=== PATIENT | male | born 1945 | race Caucasian/White ===

== ENCOUNTER 2018-01-06 10:59 | Inpatient (IN) | payer MEDICARE ==
[~2018-01-06] VITALS: Ht 167.6 cm; Wt 96.7 kg
[~2018-01-06 10:59] MED LIST: AMIO200T42 PO; ASPI-621 PO; DAPT500V3 IV; FURO-92 PO; HYDR-3307 PO; HYDR25TA6 PO; LOSA25TA5 PO; METO25TA35 PO; OMEG-160 PO; POTA20TA6 PO; SIMV20TA3 PO; VITA1CAP5 PO; WARF5TAB PO
[2018-01-06] MEDS ORDERED: FURO20TA3 PO (13:24)
[2018-01-06] MEDS ORDERED: HYDR12.58 PO (13:25)
[2018-01-06] MEDS ORDERED: POTA10TA11 PO (13:27)
[2018-01-06 13:30] VITALS: BP 113/70
[2018-01-06] MEDS ORDERED: ONDANSETRON 2MG/ML, 2ML IVPush PRN (14:00)
[2018-01-06] MEDS: HEPARIN 5,000 UNITS/ML, 1ML SQ SCH ×2 (14:12→21:41)
[2018-01-06] MEDS: SODIUM CHLORIDE 0.9% 1,000 ML IV SCH (14:24)
[2018-01-06 15:30] LABS: BASOPHILS # (AUTO) 0.08 x10^3/uL (0-0.1); BASOPHILS % (AUTO) 1 % (0-1); EOSINOPHILS # (AUTO) 0.31 x10^3/uL (0-0.4); EOSINOPHILS % (AUTO) 5 % (1-7); LYMPHOCYTES # (AUTO) 1.14 x10^3/uL (1-3.4); LYMPHOCYTES % (AUTO) 17 % (22-44); MD NO; MEAN CORPUSCULAR HEMOGLOBIN 28.2 pg (27.5-34.5); MEAN CORPUSCULAR HGB CONC 32.7 g/dL (33.2-36.2); MEAN CORPUSCULAR VOLUME 86.3 fL (81-97); MEAN PLATELET VOLUME 8.8 fL (7.4-10.4); MONOCYTES # (AUTO) 0.77 x10^3/uL (0.2-0.8); MONOCYTES % (AUTO) 11 % (2-9); NEUTROPHILS # (AUTO) 4.63 x10^3/uL (1.8-6.8); NEUTROPHILS % (AUTO) 67 % (42-75); PLATELET COUNT 236 x10^3/uL (130-400); RED BLOOD COUNT 5.16 x10^6/uL (4.38-5.82); RED CELL DISTRIBUTION WIDTH 17.1 % (9.4-14.8)
[2018-01-06 15:33] LABS: INTERNATIONAL NORMALIZED RATIO 1.19 (0.93-1.1); PROTHROMBIN TIME 12.2 Seconds (9.6-11.5)
[2018-01-06 15:36] LABS: ALBUMIN 2.2 g/dL (3.4-5.0); ANION GAP 7 mmol/L (5-15); CALCIUM 8.6 mg/dL (8.5-10.1); CHLORIDE 99 mmol/L (98-107)
[2018-01-06 15:52] LABS: ALANINE AMINOTRANSFERASE 181 U/L (12-78); ALKALINE PHOSPHATASE 1306 U/L (45-117); BILIRUBIN,TOTAL 7.8 mg/dL (0.2-1.0); CREATININE 0.78 mg/dL (0.7-1.3); TOTAL PROTEIN 6.8 g/dL (6.4-8.2)
[2018-01-06 19:58] VITALS: BP 111/64
[2018-01-06] MEDS: METOPROLOL TARTRATE 25 MG TABLET PO SCH (21:35)
[2018-01-06] MEDS ORDERED: IBUPROFEN 200 MG TABLET PO PRN (23:00)
[2018-01-07 01:48] VITALS: BP 111/69
[2018-01-07 04:51] LABS: BASOPHILS # (AUTO) 0.08 x10^3/uL (0-0.1); BASOPHILS % (AUTO) 1 % (0-1); EOSINOPHILS # (AUTO) 0.44 x10^3/uL (0-0.4); EOSINOPHILS % (AUTO) 6 % (1-7); LYMPHOCYTES # (AUTO) 1.68 x10^3/uL (1-3.4); LYMPHOCYTES % (AUTO) 23 % (22-44); MD NO; MEAN CORPUSCULAR HEMOGLOBIN 28.6 pg (27.5-34.5); MEAN CORPUSCULAR HGB CONC 33.2 g/dL (33.2-36.2); MEAN CORPUSCULAR VOLUME 86.1 fL (81-97); MEAN PLATELET VOLUME 8.3 fL (7.4-10.4); MONOCYTES # (AUTO) 0.75 x10^3/uL (0.2-0.8); MONOCYTES % (AUTO) 10 % (2-9); NEUTROPHILS # (AUTO) 4.36 x10^3/uL (1.8-6.8); NEUTROPHILS % (AUTO) 60 % (42-75); PLATELET COUNT 257 x10^3/uL (130-400); RED BLOOD COUNT 4.91 x10^6/uL (4.38-5.82); RED CELL DISTRIBUTION WIDTH 16.8 % (9.4-14.8)
[2018-01-07 05:01] LABS: ALANINE AMINOTRANSFERASE 167 U/L (12-78); ALBUMIN 2.1 g/dL (3.4-5.0); ANION GAP 4 mmol/L (5-15); CALCIUM 8.3 mg/dL (8.5-10.1); CHLORIDE 101 mmol/L (98-107); CREATININE 0.72 mg/dL (0.7-1.3)
[2018-01-07 05:15] LABS: ALKALINE PHOSPHATASE 1235 U/L (45-117); BILIRUBIN,TOTAL 8.1 mg/dL (0.2-1.0); TOTAL PROTEIN 6.4 g/dL (6.4-8.2)
[2018-01-07] MEDS: SODIUM CHLORIDE 0.9% 1,000 ML IV SCH ×2 (05:30→23:50)
[2018-01-07 08:03] VITALS: BP 112/69
[2018-01-07] MEDS: LOSARTAN 25MG TABLET PO SCH (08:26)
[2018-01-07] MEDS: METOPROLOL TARTRATE 25 MG TABLET PO SCH ×2 (08:26→20:49)
[2018-01-07] MEDS: ASPIRIN 81 MG TABLET EC PO SCH (08:26)
[2018-01-07 12:35] VITALS: BP 96/70
[2018-01-07] MEDS ORDERED: ROCURONIUM 10MG/ML,5ML ONE (14:13)
[2018-01-07] MEDS ORDERED: SUCCINYLCHOLINE 20 MG/ML, 10ML ONE (14:13)
[2018-01-07] MEDS ORDERED: PROPOFOL 10 MG/ML, 20ML ONE (14:13)
[2018-01-07] MEDS ORDERED: FENTANYL PF 100 MCG/2ML ONE (14:14)
[2018-01-07] MEDS ORDERED: PROMETHAZINE 12.5 MG SUPP PR PRN (14:30)
[2018-01-07] MEDS ORDERED: PROMETHAZINE 25 MG SUPP PR PRN (14:30)
[2018-01-07] MEDS ORDERED: PROMETHAZINE 25 MG/ML, 1ML IV PRN (14:30)
[2018-01-07] MEDS ORDERED: HYDROmorphone 1 MG/ML, 1ML IV PRN (14:30)
[2018-01-07] MEDS ORDERED: FENTANYL PF 100 MCG/2ML IV PRN (14:30)
[2018-01-07] MEDS ORDERED: hydrALAzine 20 MG/ML, 1ML IV PRN (14:30)
[2018-01-07] MEDS ORDERED: LABETALOL 5MG/ML, 20ML IV PRN (14:30)
[2018-01-07] MEDS ORDERED: ONDANSETRON ODT 8 MG PO PRN (14:30)
[2018-01-07] MEDS: HEPARIN 5,000 UNITS/ML, 1ML SQ SCH ×2 (15:00→20:49)
[2018-01-07] MEDS ORDERED: PHENYLEPHRINE 10 MG/ML ONE (15:43)
[2018-01-07] MEDS ORDERED: OMNIPAQUE 350 MG/ML, 50 ML BOTTLE IV ONE (16:00)
[2018-01-07] MEDS ORDERED: METOPROLOL 1 MG/ML, 5ML ONE (16:01)
[2018-01-07] MEDS: ACETAMINOPHEN 325 MG TABLET PO PRN ×2 (18:18→23:50)
[2018-01-07 19:12] VITALS: BP 136/79
[2018-01-08 03:44] VITALS: BP 126/74
[2018-01-08] MEDS: HEPARIN 5,000 UNITS/ML, 1ML SQ SCH ×3 (05:59→21:25)
[2018-01-08] MEDS: SENNA/DOCUSATE TABLET PO PRN (06:13)
[2018-01-08] MEDS: ACETAMINOPHEN 325 MG TABLET PO PRN (06:13)
[2018-01-08 07:49] LABS: ALANINE AMINOTRANSFERASE 174 U/L (12-78); ALBUMIN 2.1 g/dL (3.4-5.0); ANION GAP 9 mmol/L (5-15); CALCIUM 8.8 mg/dL (8.5-10.1); CHLORIDE 101 mmol/L (98-107); CREATININE 0.88 mg/dL (0.7-1.3)
[2018-01-08 07:52] VITALS: BP 105/69
[2018-01-08 07:52] LABS: TOTAL PROTEIN 6.6 g/dL (6.4-8.2)
[2018-01-08] MEDS: METOPROLOL TARTRATE 25 MG TABLET PO SCH ×2 (07:54→21:24)
[2018-01-08] MEDS: ASPIRIN 81 MG TABLET EC PO SCH (07:54)
[2018-01-08] MEDS: LOSARTAN 25MG TABLET PO SCH (07:54)
[2018-01-08 08:15] LABS: ALKALINE PHOSPHATASE 1366 U/L (45-117)
[2018-01-08] MEDS ORDERED: HYDROcodone/APAP 5/325 TABLET PO ONE (09:30)
[2018-01-08 15:32] VITALS: BP 124/70
[2018-01-08] MEDS: OXYcodone IR 5MG TABLET PO PRN (16:41)
[2018-01-08 20:10] VITALS: BP 130/77
[2018-01-08] MEDS: SODIUM CHLORIDE 0.9% 1,000 ML IV SCH (21:00)
[2018-01-08] MEDS: ACETAMINOPHEN 325 MG TABLET PO SCH (21:24)
[2018-01-08] MEDS ORDERED: ONDANSETRON ODT 4 MG PO PRN (21:30)
[2018-01-09 00:46] VITALS: BP 115/66
[2018-01-09] MEDS: ACETAMINOPHEN 325 MG TABLET PO SCH ×5 (03:00→20:59)
[2018-01-09] MEDS: OXYcodone IR 5MG TABLET PO PRN ×3 (04:53→20:59)
[2018-01-09] MEDS: HEPARIN 5,000 UNITS/ML, 1ML SQ SCH ×3 (04:55→21:00)
[2018-01-09 07:35] VITALS: BP 105/65
[2018-01-09] MEDS ORDERED: FENTANYL PF 100 MCG/2ML ONE (08:04)
[2018-01-09] MEDS ORDERED: LIDOCAINE 2% 100MG/5ML SYRINGE ONE (08:26)
[2018-01-09] MEDS ORDERED: ROCURONIUM 10MG/ML,5ML ONE (08:26)
[2018-01-09] MEDS ORDERED: PHENYLEPHRINE 10 MG/ML ONE (08:26)
[2018-01-09] MEDS ORDERED: PROPOFOL 10 MG/ML, 20ML ONE (08:26)
[2018-01-09] MEDS ORDERED: SUCCINYLCHOLINE 20 MG/ML, 10ML ONE (08:26)
[2018-01-09] MEDS: LOSARTAN 25MG TABLET PO SCH (09:00)
[2018-01-09] MEDS: METOPROLOL TARTRATE 25 MG TABLET PO SCH ×2 (09:00→20:59)
[2018-01-09] MEDS ORDERED: GLUCAGON 1 MG ONE (09:23)
[2018-01-09] MEDS ORDERED: OMNIPAQUE 350 MG/ML, 50 ML BOTTLE ONE (10:06)
[2018-01-09 14:00] VITALS: BP 120/74
[2018-01-09] MEDS: SODIUM CHLORIDE 0.9% 1,000 ML IV SCH (15:05)
[2018-01-09 19:41] VITALS: BP 117/67
[2018-01-10] MEDS ORDERED: DIPHENHYDRAMINE 25 MG CAPSULE PO PRN
[2018-01-10 01:38] VITALS: BP 104/66
[2018-01-10] MEDS: ACETAMINOPHEN 325 MG TABLET PO SCH ×4 (03:00→21:24)
[2018-01-10] MEDS: HEPARIN 5,000 UNITS/ML, 1ML SQ SCH ×3 (05:00→21:24)
[2018-01-10] MEDS: OXYcodone IR 5MG TABLET PO PRN ×3 (06:27→21:24)
[2018-01-10 08:18] VITALS: BP 107/67
[2018-01-10] MEDS: LOSARTAN 25MG TABLET PO SCH (09:29)
[2018-01-10] MEDS: METOPROLOL TARTRATE 25 MG TABLET PO SCH ×2 (09:29→21:24)
[2018-01-10] MEDS: SODIUM CHLORIDE 0.9% 1,000 ML IV SCH (09:30)
[2018-01-10 13:17] VITALS: BP 102/64
[2018-01-10 19:33] VITALS: BP 102/62
[2018-01-11] MEDS: SODIUM CHLORIDE 0.9% 1,000 ML IV SCH (02:07)
[2018-01-11] MEDS: ACETAMINOPHEN 325 MG TABLET PO SCH ×4 (03:00→21:00)
[2018-01-11 03:15] VITALS: BP 119/73
[2018-01-11] MEDS: HEPARIN 5,000 UNITS/ML, 1ML SQ SCH ×4 (05:05→20:40)
[2018-01-11 07:01] VITALS: BP 114/65
[2018-01-11] MEDS: LOSARTAN 25MG TABLET PO SCH (08:28)
[2018-01-11] MEDS: METOPROLOL TARTRATE 25 MG TABLET PO SCH ×2 (08:28→20:40)
[2018-01-11] MEDS: OXYcodone IR 5MG TABLET PO PRN ×2 (08:32→22:30)
[2018-01-11 12:21] VITALS: BP 108/62
[2018-01-11] MEDS: SENNA/DOCUSATE TABLET PO PRN (14:03)
[2018-01-11] MEDS ORDERED: BISACODYL 10 MG SUPP PR PRN (14:30)
[2018-01-11 19:12] VITALS: BP 113/65
[2018-01-12 01:14] VITALS: BP 109/62
[2018-01-12] MEDS: ACETAMINOPHEN 325 MG TABLET PO SCH ×4 (03:00→20:35)
[2018-01-12] MEDS: MORPHINE SULFATE 4 MG/ML, 1ML IVPush PRN ×2 (05:19→17:35)
[2018-01-12 06:36] LABS: ALANINE AMINOTRANSFERASE 180 U/L (12-78); ALBUMIN 1.8 g/dL (3.4-5.0); ANION GAP 5 mmol/L (5-15); CALCIUM 8.2 mg/dL (8.5-10.1); CHLORIDE 98 mmol/L (98-107); CREATININE 0.61 mg/dL (0.7-1.3)
[2018-01-12 06:51] LABS: ALKALINE PHOSPHATASE 1049 U/L (45-117); BILIRUBIN,TOTAL 10.9 mg/dL (0.2-1.0); TOTAL PROTEIN 5.6 g/dL (6.4-8.2)
[2018-01-12 08:00] VITALS: BP 109/59
[2018-01-12] MEDS: LOSARTAN 25MG TABLET PO SCH (08:21)
[2018-01-12] MEDS: METOPROLOL TARTRATE 25 MG TABLET PO SCH ×2 (08:21→20:35)
[2018-01-12] MEDS: SODIUM CHLORIDE 0.9% 1,000 ML IV SCH (08:21)
[2018-01-12] MEDS: HEPARIN 5,000 UNITS/ML, 1ML SQ SCH ×2 (11:11→20:35)
[2018-01-12 13:18] VITALS: BP 96/48
[2018-01-12] MEDS ORDERED: MIDAZOLAM 1 MG/ML, 2ML ONE (14:34)
[2018-01-12] MEDS ORDERED: CEFAZOLIN 1,000 MG ONE (14:34)
[2018-01-12] MEDS ORDERED: DEXAMETHASONE 4 MG/ML, 1ML ONE (14:34)
[2018-01-12] MEDS ORDERED: FENTANYL PF 100 MCG/2ML ONE (14:35)
[2018-01-12] MEDS ORDERED: OMNIPAQUE 350 MG/ML, 50 ML BOTTLE IV ONE (15:00)
[2018-01-12] MEDS ORDERED: ONDANSETRON ODT 8 MG PO PRN (15:30)
[2018-01-12] MEDS ORDERED: EPHEDRINE 50 MG/ML, 1ML IVPush PRN (15:30)
[2018-01-12] MEDS ORDERED: hydrALAzine 20 MG/ML, 1ML IV PRN (15:30)
[2018-01-12] MEDS ORDERED: HYDROcodone/APAP 7.5-325MG/15ML UDC PO PRN (15:30)
[2018-01-12] MEDS ORDERED: MEPERIDINE/PF 25MG/0.5ML IVPush PRN (15:30)
[2018-01-12] MEDS ORDERED: OXYcodone 5 MG/5 ML ORAL.SOL UDC PO PRN (15:30)
[2018-01-12] MEDS ORDERED: PROMETHAZINE 25 MG/ML, 1ML IV PRN (15:30)
[2018-01-12] MEDS ORDERED: HYDROmorphone 1 MG/ML, 1ML IV PRN (15:30)
[2018-01-12] MEDS ORDERED: MIDAZOLAM 1 MG/ML, 2ML IV PRN (15:30)
[2018-01-12] MEDS ORDERED: ACETAMINOPHEN 325 MG TABLET PO PRN (15:30)
[2018-01-12] MEDS ORDERED: FENTANYL PF 100 MCG/2ML IV PRN (15:30)
[2018-01-12] MEDS ORDERED: ALBUTEROL SULFATE 2.5 MG/3 ML NPPB PRN (15:30)
[2018-01-12] MEDS ORDERED: LABETALOL 5MG/ML, 20ML IV PRN (15:30)
[2018-01-12 19:57] VITALS: BP 102/54
[2018-01-13] MEDS: OXYcodone IR 5MG TABLET PO PRN (00:37)
[2018-01-13] MEDS: SODIUM CHLORIDE 0.9% 1,000 ML IV SCH ×2 (00:40→04:10)
[2018-01-13 01:10] VITALS: BP 100/56
[2018-01-13] MEDS: ACETAMINOPHEN 325 MG TABLET PO SCH ×3 (02:48→13:38)
[2018-01-13] MEDS: HEPARIN 5,000 UNITS/ML, 1ML SQ SCH ×2 (04:53→13:33)
[2018-01-13 07:21] VITALS: BP 117/71
[2018-01-13] MEDS: LOSARTAN 25MG TABLET PO SCH (08:59)
[2018-01-13] MEDS: METOPROLOL TARTRATE 25 MG TABLET PO SCH (09:00)
[2018-01-13] MEDS: SENNA/DOCUSATE TABLET PO PRN (09:12)
[2018-01-13 14:42] VITALS: BP 123/67
[2018-01-13 17:28] LABS: ALBUMIN 1.8 g/dL (3.4-5.0); ANION GAP 5 mmol/L (5-15); CALCIUM 8.6 mg/dL (8.5-10.1); CHLORIDE 99 mmol/L (98-107)
[2018-01-13 17:43] LABS: ALANINE AMINOTRANSFERASE 171 U/L (12-78); ALKALINE PHOSPHATASE 1048 U/L (45-117); BILIRUBIN,TOTAL 5.8 mg/dL (0.2-1.0); TOTAL PROTEIN 6.1 g/dL (6.4-8.2)
== END 2018-01-13 19:00 | disposition home or self-care (01) | DRG 435 ==
LOC: 3NW 13:13
PROVIDERS: ADMIT Internal Medicine; ATTEND Internal Medicine
PROC: 0F798DZ Dilation of Common Bile Duct with Intraluminal Device, Via Natural or Artificial Opening Endoscopic (ICD-10-PCS; principal; 2018-01-07 13:00)
PROC: BF4CZZZ Ultrasonography of Hepatobiliary System, All (ICD-10-PCS; 2018-01-09)
PROC: 0FPB8DZ Removal of Intraluminal Device from Hepatobiliary Duct, Via Natural or Artificial Opening Endoscopic (ICD-10-PCS; 2018-01-09)
PROC: 0F9G8ZZ Drainage of Pancreas, Via Natural or Artificial Opening Endoscopic (ICD-10-PCS; 2018-01-09)
PROC: 0F798DZ Dilation of Common Bile Duct with Intraluminal Device, Via Natural or Artificial Opening Endoscopic (ICD-10-PCS; 2018-01-12)
PROC: BF101ZZ Fluoroscopy of Bile Ducts using Low Osmolar Contrast (ICD-10-PCS; 2018-01-12)
DX: C25.9 Malignant neoplasm of pancreas, unspecified (principal); K83.1 Obstruction of bile duct; J90 Pleural effusion, not elsewhere classified; E87.1 Hypo-osmolality and hyponatremia; K86.9 Disease of pancreas, unspecified; E11.9 Type 2 diabetes mellitus without complications; M54.9 Dorsalgia, unspecified; E78.5 Hyperlipidemia, unspecified; I10 Essential (primary) hypertension; I25.10 Atherosclerotic heart disease of native coronary artery without angina pectoris; I35.0 Nonrheumatic aortic (valve) stenosis; Z79.82 Long term (current) use of aspirin; Z95.1 Presence of aortocoronary bypass graft; Z95.3 Presence of xenogenic heart valve; Z95.5 Presence of coronary angioplasty implant and graft; Z90.49 Acquired absence of other specified parts of digestive tract; Z79.899 Other long term (current) drug therapy
CPT/HCPCS: 36415; 74181; 74328; 80053; 82962; 83690; 85025; 85610; 88104; 88173; 88307; 93005; J0690; J1100; J1644; J2250; J2405; J2704; J3010; Q0162; Q9967; C1769; C1874; C1894; C2625; J0330; J1610; J2370; J7030; Q0163

== ENCOUNTER 2018-01-18 20:30 | Inpatient (IN) | payer MEDICARE ==
[~2018-01-18] VITALS: Ht 167.6 cm; Wt 100.2 kg
[~2018-01-18 20:30] MED LIST changes: +FURO20TA3 PO; +HYDR12.58 PO; +POTA10TA11 PO
[2018-01-18 21:12] LABS: BASOPHILS # (AUTO) 0.03 x10^3/uL (0-0.1); BASOPHILS % (AUTO) 0 % (0-1); EOSINOPHILS % (AUTO) 1 % (1-7); LYMPHOCYTES # (AUTO) 1.11 x10^3/uL (1-3.4); LYMPHOCYTES % (AUTO) 13 % (22-44); MD NO; MEAN CORPUSCULAR HEMOGLOBIN 28.8 pg (27.5-34.5); MEAN CORPUSCULAR HGB CONC 33.2 g/dL (33.2-36.2); MEAN CORPUSCULAR VOLUME 86.9 fL (81-97); MEAN PLATELET VOLUME 7.8 fL (7.4-10.4); MONOCYTES # (AUTO) 0.93 x10^3/uL (0.2-0.8); MONOCYTES % (AUTO) 11 % (2-9); NEUTROPHILS # (AUTO) 6.44 x10^3/uL (1.8-6.8); NEUTROPHILS % (AUTO) 75 % (42-75); PLATELET COUNT 324 x10^3/uL (130-400); RED BLOOD COUNT 4.93 x10^6/uL (4.38-5.82); RED CELL DISTRIBUTION WIDTH 18.1 % (9.4-14.8)
[2018-01-18] MEDS ORDERED: SODIUM CHLORIDE 0.9% 1,000 ML IV ONE (21:12)
[2018-01-18 21:22] LABS: ALANINE AMINOTRANSFERASE 133 U/L (12-78); ALBUMIN 2.2 g/dL (3.4-5.0); ANION GAP 8 mmol/L (5-15); CALCIUM 8.7 mg/dL (8.5-10.1); CHLORIDE 97 mmol/L (98-107); CREATININE 0.81 mg/dL (0.7-1.3)
[2018-01-18 21:26] LABS: ALKALINE PHOSPHATASE 958 U/L (45-117); BILIRUBIN,TOTAL 4.3 mg/dL (0.2-1.0); TOTAL PROTEIN 6.9 g/dL (6.4-8.2); TROPONIN I < 0.015 ng/mL (0.000-0.045)
[2018-01-18] MEDS ORDERED: AZITHROMYCIN 500 MG in SODIUM CHLORIDE 0.9% 250 ML IV ONE (21:30)
[2018-01-18] MEDS ORDERED: ONDANSETRON 2MG/ML, 2ML IVPush ONE (21:30)
[2018-01-18] MEDS ORDERED: CEFTRIAXONE PMX 1GM/50ML 50 ML IV ONE (21:30)
[2018-01-18] MEDS ORDERED: SODIUM CHLORIDE FLUSH 10ML SYR IVF ONE (21:30)
[2018-01-18] MEDS ORDERED: FUROSEMIDE 40 MG/4 ML IV ONE (21:30)
[2018-01-18 21:33] LABS: INTERNATIONAL NORMALIZED RATIO 1.13 (0.93-1.1); PROTHROMBIN TIME 11.6 Seconds (9.6-11.5)
[2018-01-18] MEDS ORDERED: CEFTRIAXONE PMX 1GM/50ML 50 ML ONE (21:37)
[2018-01-18] MEDS ORDERED: ONDANSETRON 2MG/ML, 2ML ONE (21:37)
[2018-01-18] MEDS ORDERED: FUROSEMIDE 20 MG/2 ML ONE (21:38)
[2018-01-18] MEDS ORDERED: MORPHINE SULFATE 4 MG/ML, 1ML ONE ×2 (21:38→22:51)
[2018-01-18] MEDS: MORPHINE SULFATE 4 MG/ML, 1ML IVPush PRN ×2 (21:41→22:57)
[2018-01-18] MEDS ORDERED: POT25TAB PO (23:22)
[2018-01-18] MEDS ORDERED: DOCU100C33 PO (23:22)
[2018-01-18] MEDS ORDERED: OMEG1CAP23 PO (23:22)
[2018-01-18] MEDS ORDERED: FURO20TA3 PO (23:22)
[2018-01-18] MEDS ORDERED: POLYETHYLENE GLYCOL 17 GM PACKET PO PRN (23:30)
[2018-01-18] MEDS ORDERED: hydrALAzine 20 MG/ML, 1ML IVPush PRN (23:30)
[2018-01-18] MEDS ORDERED: DOCUSATE 100 MG CAPSULE PO PRN ×2 (23:30)
[2018-01-19] VITALS (7 sets, daily range): BP systolic 90–157; BP diastolic 56–93
[2018-01-19] MEDS ORDERED: OMNIPAQUE 350 MG/ML, 100ML BOTTLE ONE (00:03)
[2018-01-19] MEDS: ENOXAPARIN 40 MG/0.4 ML SQ SCH (01:30)
[2018-01-19] MEDS: morphine SULFATE 10 MG/ML, 1ML IVPush PRN ×4 (01:30→16:50)
[2018-01-19] MEDS: ACETAMINOPHEN 325 MG TABLET PO PRN (02:34)
[2018-01-19] MEDS: ONDANSETRON 2MG/ML, 2ML IVPush PRN ×2 (02:34→19:15)
[2018-01-19 04:12] LABS: ALANINE AMINOTRANSFERASE 128 U/L (12-78); ALBUMIN 2.1 g/dL (3.4-5.0); ANION GAP 10 mmol/L (5-15); CALCIUM 8.5 mg/dL (8.5-10.1); CHLORIDE 95 mmol/L (98-107)
[2018-01-19 04:16] LABS: ALKALINE PHOSPHATASE 905 U/L (45-117); BILIRUBIN,TOTAL 4.5 mg/dL (0.2-1.0); TOTAL PROTEIN 6.7 g/dL (6.4-8.2); TROPONIN I < 0.015 ng/mL (0.000-0.045)
[2018-01-19 06:09] LABS: BASOPHILS % (AUTO) 0 % (0-1); EOSINOPHILS # (AUTO) 0.01 x10^3/uL (0-0.4); EOSINOPHILS % (AUTO) 0 % (1-7); LYMPHOCYTES # (AUTO) 0.72 x10^3/uL (1-3.4); LYMPHOCYTES % (AUTO) 5 % (22-44); MD NO; MEAN CORPUSCULAR HGB CONC 33.6 g/dL (33.2-36.2); MEAN CORPUSCULAR VOLUME 86.4 fL (81-97); MEAN PLATELET VOLUME 8.4 fL (7.4-10.4); MONOCYTES # (AUTO) 0.83 x10^3/uL (0.2-0.8); MONOCYTES % (AUTO) 6 % (2-9); NEUTROPHILS # (AUTO) 12.75 x10^3/uL (1.8-6.8); NEUTROPHILS % (AUTO) 89 % (42-75); PLATELET COUNT 332 x10^3/uL (130-400); RED BLOOD COUNT 4.76 x10^6/uL (4.38-5.82); RED CELL DISTRIBUTION WIDTH 18.3 % (9.4-14.8)
[2018-01-19] MEDS ORDERED: CEFTRIAXONE 1,000 MG in SODIUM CHLORIDE 0.9% 50 ML IV SCH (08:00)
[2018-01-19] MEDS ORDERED: CEFTRIAXONE PMX 1GM/50ML 50 ML IV SCH (08:00)
[2018-01-19] MEDS: POTASSIUM CHLORIDE 20 MEQ TAB.ER.PRT PO SCH ×2 (08:37→16:50)
[2018-01-19] MEDS: ASPIRIN 81 MG TABLET EC PO SCH (08:39)
[2018-01-19] MEDS: FUROSEMIDE 40 MG/4 ML IV SCH ×2 (08:48→16:50)
[2018-01-19] MEDS: METOPROLOL TARTRATE 25 MG TABLET PO SCH ×2 (08:48→23:01)
[2018-01-19] MEDS: SODIUM CHLORIDE FLUSH 10ML SYR IVF SCH ×2 (08:49→20:49)
[2018-01-19] MEDS: OMEGA-3/FISH OIL CAPSULE PO SCH (08:49)
[2018-01-19] MEDS: DOXYCYCLINE 100 MG in DEXTROSE 5% 250 ML IV SCH ×2 (08:49→20:49)
[2018-01-19] MEDS ORDERED: LOSARTAN 25MG TABLET PO SCH (09:00)
[2018-01-19 09:42] LABS: TROPONIN I < 0.015 ng/mL (0.000-0.045)
[2018-01-19] MEDS ORDERED: LIDOCAINE-MPF 2% ,5ML ONE (11:19)
[2018-01-19] MEDS: SODIUM CHLORIDE 0.9% 1,000 ML IV SCH (21:07)
[2018-01-20] VITALS (7 sets, daily range): BP systolic 82–96; BP diastolic 50–58
[2018-01-20] MEDS ORDERED: ALUMINUM/MAG/SIMETHICONE 30 ML UDC PO ONE (04:40)
[2018-01-20 06:05] LABS: MEAN CORPUSCULAR HEMOGLOBIN 28.5 pg (27.5-34.5); MEAN CORPUSCULAR HGB CONC 32.9 g/dL (33.2-36.2); MEAN CORPUSCULAR VOLUME 86.8 fL (81-97); MEAN PLATELET VOLUME 7.6 fL (7.4-10.4); PLATELET COUNT 222 x10^3/uL (130-400); RED CELL DISTRIBUTION WIDTH 17.9 % (9.4-14.8)
[2018-01-20 06:22] LABS: ALANINE AMINOTRANSFERASE 146 U/L (12-78); ALBUMIN 1.7 g/dL (3.4-5.0); ANION GAP 7 mmol/L (5-15); CALCIUM 8.4 mg/dL (8.5-10.1); CHLORIDE 93 mmol/L (98-107)
[2018-01-20 06:25] LABS: ALKALINE PHOSPHATASE 680 U/L (45-117); BILIRUBIN,TOTAL 3.5 mg/dL (0.2-1.0); CREATININE 1.97 mg/dL (0.7-1.3); TOTAL PROTEIN 5.4 g/dL (6.4-8.2)
[2018-01-20] MEDS: SODIUM CHLORIDE 0.9% 1,000 ML IV SCH ×3 (06:30→12:13)
[2018-01-20 06:43] LABS: MD YES
[2018-01-20 06:45] LABS: BAND#(MANUAL) 3.15 x10^3/uL; BANDS%(MANUAL) 19 % (0-7); LYMPH#(MANUAL) 1.83 x10^3/uL (1-3.4); LYMPHS% (MANUAL) 11 % (22-44); MONOS#(MANUAL) 0.33 x10^3/uL (0.3-2.7); MONOS% (MANUAL) 2 % (2-9); SEG#(MANUAL) 11.29 x10^3/uL (1.8-6.8); SEGS% (MANUAL) 68 % (42-75)
[2018-01-20 06:46] LABS: <PLATELET ESTIMATE> ADEQUATE; <PLT MORPHOLOGY> NORMAL PLT MORPH; ANISOCYTOSIS 1+; TOXIC GRAN 1+
[2018-01-20] MEDS ORDERED: MAALOX/HYOSCYAMINE/LIDOCAINE 45 ML BTL PO PRN (07:00)
[2018-01-20] MEDS ORDERED: ROCEPHIN MC SCH (07:00)
[2018-01-20] MEDS ORDERED: ALBUMIN HUMAN 25% 100 ML IV ONE ×2 (07:00→11:30)
[2018-01-20] MEDS ORDERED: CEFTRIAXONE PMX 1GM/50ML 50 ML IV SCH (08:00)
[2018-01-20] MEDS: CEFTRIAXONE 2 GM in SODIUM CHLORIDE 0.9% 50 ML IV SCH (08:09)
[2018-01-20] MEDS: SODIUM CHLORIDE 0.9% 500 ML IV SCH ×3 (08:09→10:44)
[2018-01-20] MEDS ORDERED: METOPROLOL TARTRATE 25 MG TABLET PO SCH (09:00)
[2018-01-20] MEDS: DOXYCYCLINE 100 MG in DEXTROSE 5% 250 ML IV SCH ×2 (09:39→21:23)
[2018-01-20] MEDS: POTASSIUM CHLORIDE 20 MEQ TAB.ER.PRT PO SCH (09:40)
[2018-01-20] MEDS: ASPIRIN 81 MG TABLET EC PO SCH (09:40)
[2018-01-20] MEDS: SODIUM CHLORIDE FLUSH 10ML SYR IVF SCH ×2 (09:40→20:19)
[2018-01-20] MEDS: ENOXAPARIN 40 MG/0.4 ML SQ SCH (09:40)
[2018-01-20] MEDS: OMEGA-3/FISH OIL CAPSULE PO SCH (09:41)
[2018-01-20] MEDS ORDERED: ALBUMIN HUMAN 5% 250 ML IV ONE (11:30)
[2018-01-20] MEDS: ACETAMINOPHEN 325 MG TABLET PO PRN (14:50)
[2018-01-20] MEDS: BISACODYL 10 MG SUPP PR PRN (14:53)
[2018-01-20] MEDS ORDERED: SODIUM CHLORIDE 0.9% 500 ML IV SCH (15:00)
[2018-01-20] MEDS ORDERED: MORPHINE SULFATE 4 MG/ML, 1ML IVPush PRN (17:00)
[2018-01-20] MEDS ORDERED: LACTULOSE 10 GM/15 ML UDC PO PRN (17:00)
[2018-01-20 17:19] LABS: ANION GAP 11 mmol/L (5-15); CALCIUM 8.2 mg/dL (8.5-10.1); CHLORIDE 95 mmol/L (98-107); CREATININE 1.85 mg/dL (0.7-1.3)
[2018-01-20] MEDS: HEPARIN 5,000 UNITS/ML, 1ML SQ SCH (17:34)
[2018-01-20] MEDS ORDERED: SODIUM CHLORIDE 0.9% 1,000 ML IV SCH (19:00)
[2018-01-20] MEDS ORDERED: ALBUTEROL/IPRATROPIUM 2.5MG/0.5MG, 3 ML ONE (19:33)
[2018-01-20] MEDS: ALBUMIN HUMAN 25% 100 ML IV SCH (20:17)
[2018-01-20] MEDS: DOCUSATE 100 MG CAPSULE PO SCH (20:18)
[2018-01-20] MEDS: LACTULOSE 10 GM/15 ML UDC PO SCH (20:19)
[2018-01-20 22:53] LABS: POTASSIUM,URINE RANDOM 63 mmol/L
[2018-01-20 22:56] LABS: CHLORIDE,URINE RANDOM < 10 mmol/L; SODIUM,URINE RANDOM < 5 mmol/L
[2018-01-21] MEDS: ACETAMINOPHEN 325 MG TABLET PO PRN (01:02)
[2018-01-21 01:06] VITALS: BP 103/65
[2018-01-21] MEDS ORDERED: SODIUM CHLORIDE 0.9% 1,000 ML IV SCH ×2 (01:30→21:00)
[2018-01-21] MEDS: HEPARIN 5,000 UNITS/ML, 1ML SQ SCH ×3 (04:18→20:25)
[2018-01-21] MEDS: ALBUMIN HUMAN 25% 100 ML IV SCH ×3 (04:18→20:26)
[2018-01-21 05:24] LABS: ALBUMIN 2.5 g/dL (3.4-5.0); ANION GAP 9 mmol/L (5-15); CALCIUM 8.1 mg/dL (8.5-10.1); CHLORIDE 96 mmol/L (98-107)
[2018-01-21 05:27] LABS: ALANINE AMINOTRANSFERASE 212 U/L (12-78); ALKALINE PHOSPHATASE 765 U/L (45-117); BILIRUBIN,TOTAL 4.9 mg/dL (0.2-1.0); TOTAL PROTEIN 5.6 g/dL (6.4-8.2)
[2018-01-21 05:28] LABS: MEAN CORPUSCULAR HGB CONC 33.2 g/dL (33.2-36.2); MEAN CORPUSCULAR VOLUME 87.4 fL (81-97); MEAN PLATELET VOLUME 8.7 fL (7.4-10.4); PLATELET COUNT 160 x10^3/uL (130-400); RED BLOOD COUNT 3.82 x10^6/uL (4.38-5.82); RED CELL DISTRIBUTION WIDTH 18.6 % (9.4-14.8)
[2018-01-21 05:51] LABS: MD YES
[2018-01-21 05:53] LABS: BAND#(MANUAL) 1.63 x10^3/uL; BANDS%(MANUAL) 11 % (0-7); LYMPH#(MANUAL) 1.33 x10^3/uL (1-3.4); LYMPHS% (MANUAL) 9 % (22-44); MONOS#(MANUAL) 0.59 x10^3/uL (0.3-2.7); MONOS% (MANUAL) 4 % (2-9); SEG#(MANUAL) 11.25 x10^3/uL (1.8-6.8); SEGS% (MANUAL) 76 % (42-75)
[2018-01-21 05:54] LABS: ANISOCYTOSIS 1+
[2018-01-21 05:55] LABS: <PLATELET ESTIMATE> ADEQUATE; <PLT MORPHOLOGY> NORMAL PLT MORPH; TOXIC GRAN 1+
[2018-01-21 07:03] VITALS: BP 108/63
[2018-01-21] MEDS: DOCUSATE 100 MG CAPSULE PO SCH ×2 (07:55→20:25)
[2018-01-21] MEDS: CEFTRIAXONE 2 GM in SODIUM CHLORIDE 0.9% 50 ML IV SCH (07:55)
[2018-01-21] MEDS: ASPIRIN 81 MG TABLET EC PO SCH (07:55)
[2018-01-21] MEDS: LACTULOSE 10 GM/15 ML UDC PO SCH ×2 (07:55→20:24)
[2018-01-21] MEDS: OMEGA-3/FISH OIL CAPSULE PO SCH (07:55)
[2018-01-21] MEDS: SODIUM CHLORIDE FLUSH 10ML SYR IVF SCH ×2 (07:56→21:00)
[2018-01-21] MEDS: LIDODERM 5% PATCH TD SCH (08:30)
[2018-01-21] MEDS: OXYcodone IR 5MG TABLET PO PRN ×2 (08:51→14:23)
[2018-01-21] MEDS ORDERED: ENOXAPARIN 30 MG/0.3 ML SQ SCH (09:00)
[2018-01-21] MEDS: DOXYCYCLINE 100 MG in DEXTROSE 5% 250 ML IV SCH ×2 (10:10→22:04)
[2018-01-21] MEDS ORDERED: ALBUTEROL SULFATE 2.5 MG/3 ML NPPB PRN (12:30)
[2018-01-21 12:40] VITALS: BP 114/70
[2018-01-21 19:10] VITALS: BP 135/69
[2018-01-22 02:00] VITALS: BP 112/67
[2018-01-22] MEDS: ALBUMIN HUMAN 25% 100 ML IV SCH ×3 (04:09→20:29)
[2018-01-22] MEDS: HEPARIN 5,000 UNITS/ML, 1ML SQ SCH (04:10)
[2018-01-22] MEDS: OXYcodone IR 5MG TABLET PO PRN ×3 (05:07→20:28)
[2018-01-22 06:41] VITALS: BP 148/77
[2018-01-22] MEDS: ACETAMINOPHEN 325 MG TABLET PO PRN (07:53)
[2018-01-22] MEDS: DOCUSATE 100 MG CAPSULE PO SCH ×2 (07:54→20:28)
[2018-01-22] MEDS: ASPIRIN 81 MG TABLET EC PO SCH (07:54)
[2018-01-22] MEDS: OMEGA-3/FISH OIL CAPSULE PO SCH (07:54)
[2018-01-22] MEDS: LACTULOSE 10 GM/15 ML UDC PO SCH ×2 (07:54→20:28)
[2018-01-22] MEDS: DOXYCYCLINE 100MG TABLET PO SCH ×2 (07:54→20:29)
[2018-01-22] MEDS: CIPROFLOXACIN 500 MG TABLET PO SCH ×2 (07:55→20:29)
[2018-01-22] MEDS: SODIUM CHLORIDE FLUSH 10ML SYR IVF SCH ×2 (07:55→20:33)
[2018-01-22] MEDS: LIDODERM 5% PATCH TD SCH (07:55)
[2018-01-22 12:11] VITALS: BP 127/76
[2018-01-22] MEDS: FUROSEMIDE 20 MG TABLET PO SCH ×2 (12:20→20:28)
[2018-01-22 20:47] VITALS: BP 127/80
[2018-01-23] MEDS: ACETAMINOPHEN 325 MG TABLET PO PRN (00:24)
[2018-01-23 01:39] VITALS: BP 135/75
[2018-01-23] MEDS: ALBUMIN HUMAN 25% 100 ML IV SCH (04:04)
[2018-01-23] MEDS ORDERED: morphine SULFATE 10 MG/ML, 1ML IVPush PRN (06:30)
[2018-01-23 07:45] VITALS: BP 126/75
[2018-01-23] MEDS: LIDODERM 5% PATCH TD SCH (08:15)
[2018-01-23] MEDS: FUROSEMIDE 20 MG TABLET PO SCH (08:15)
[2018-01-23] MEDS: DOXYCYCLINE 100MG TABLET PO SCH (08:15)
[2018-01-23] MEDS: CIPROFLOXACIN 500 MG TABLET PO SCH (08:15)
[2018-01-23] MEDS: SODIUM CHLORIDE FLUSH 10ML SYR IVF SCH (08:15)
[2018-01-23] MEDS: OMEGA-3/FISH OIL CAPSULE PO SCH (08:15)
[2018-01-23] MEDS: ASPIRIN 81 MG TABLET EC PO SCH (08:15)
[2018-01-23] MEDS: DOCUSATE 100 MG CAPSULE PO SCH (08:15)
[2018-01-23] MEDS: LACTULOSE 10 GM/15 ML UDC PO SCH (08:16)
[2018-01-23] MEDS ORDERED: CIPR500T87 PO (09:32)
[2018-01-23] MEDS ORDERED: LIDO700A20 TD (09:32)
[2018-01-23] MEDS ORDERED: DOXY100T PO (09:32)
[2018-01-23] MEDS ORDERED: FURO20TA3 PO (09:32)
[2018-01-23] MEDS: BISACODYL 10 MG SUPP PR PRN (09:47)
[2018-01-23] MEDS: OXYcodone IR 5MG TABLET PO PRN (11:31)
== END 2018-01-23 12:20 | disposition hospice, home (50) | DRG 871 ==
LOC: ED 22:08 → EDIP 22:45 → 5SO 01-19 00:58 → 4WST 01-19 08:41 → 4EST 01-19 14:30
PROVIDERS: ADMIT Hospitalist; ATTEND Hospitalist
PROC: 0W9G3ZZ Drainage of Peritoneal Cavity, Percutaneous Approach (ICD-10-PCS; principal; 2018-01-19)
DX: A41.89 Other specified sepsis (principal); I50.43 Acute on chronic combined systolic (congestive) and diastolic (congestive) heart failure; K65.2 Spontaneous bacterial peritonitis; K83.1 Obstruction of bile duct; N17.0 Acute kidney failure with tubular necrosis; J90 Pleural effusion, not elsewhere classified; J98.11 Atelectasis; E87.1 Hypo-osmolality and hyponatremia; E44.0 Moderate protein-calorie malnutrition; I13.0 Hypertensive heart and chronic kidney disease with heart failure and stage 1 through stage 4 chronic kidney disease, or unspecified chronic kidney disease; R18.8 Other ascites; C78.7 Secondary malignant neoplasm of liver and intrahepatic bile duct; I25.10 Atherosclerotic heart disease of native coronary artery without angina pectoris; M54.9 Dorsalgia, unspecified; R73.9 Hyperglycemia, unspecified; B96.89 Other specified bacterial agents as the cause of diseases classified elsewhere; E78.5 Hyperlipidemia, unspecified; I35.0 Nonrheumatic aortic (valve) stenosis; N18.9 Chronic kidney disease, unspecified; Z51.5 Encounter for palliative care; Z66 Do not resuscitate; Z85.07 Personal history of malignant neoplasm of pancreas; Z87.891 Personal history of nicotine dependence; Z90.49 Acquired absence of other specified parts of digestive tract; Z95.1 Presence of aortocoronary bypass graft; Z95.2 Presence of prosthetic heart valve; Z68.35 Body mass index [BMI] 35.0-35.9, adult
CPT/HCPCS: 36415; 49083; 71045; 71275; 76770; 80048; 80053; 82140; 82150; 82436; 82570; 82945; 83605; 83615; 83690; 83880; 84133; 84145; 84157; 84300; 84484; 85025; 85610; 85730; 87040; 87070; 87075; 87077; 87186; 87205; 89051; 93005; 93306; 94640; 96365; 96366; 96368; 96375; 96376; J0456; J0696; J1644; J1650; J1940; J2405; J3490; J7060; J7613; P9047; Q9967; J2270; J7030; J7040; J7050